=== PATIENT | female | born 1985 | race Caucasian/White ===

== ENCOUNTER 2016-03-30 13:06 | Inpatient (IN) | payer OTHER ==
[2016-03-30] VITALS (15 sets, daily range): BP systolic 122–150; BP diastolic 63–88
[~2016-03-30] VITALS: Ht 165.1 cm; Wt 87.1 kg
[2016-03-30 14:03] LABS: EOSINOPHIL (%) 0.3 % (0-5); EOSINOPHIL COUNT 0.1 K/uL (0-0.3); HEMATOCRIT 36.1 % (36.0-46.0); IMMATURE GRANULOCYTE (%) 0.3 % (0.0-0.7); LYMPHOCYTE COUNT 1.1 K/uL (1.0-2.8); MCH 31.2 PG (29.0-34.0); MCHC 34.3 G/DL (30.0-36.0); MCV 90.7 FL (83-99); MEAN PLAT.VOLUME 11.6 uM^3 (9.5-12.4); MONOCYTE (%) 7.1 % (3-12); NEUTROPHIL (%) 84.9 % (45-76); NEUTROPHIL COUNT 12.5 K/uL (1.8-6.4); PLATELET COUNT 203 K/uL (156-360); RBC DIS.WIDTH-CV 13.1 % (11.8-14.6); RBC DIS.WIDTH-SD 43.1 % (39-53); RED BLOOD COUNT 3.98 M/uL (3.80-5.20); WHITE BLOOD COUNT 14.7 K/uL (4.1-10.2)
[2016-03-30] MEDS ORDERED: IBUPROFEN800 MG PO (21:17)
[2016-03-31 00:08] VITALS: BP 124/102
[2016-03-31 00:09] VITALS: BP 133/65
[2016-03-31 07:35] VITALS: BP 124/68
[2016-03-31 15:36] VITALS: BP 119/69
[2016-03-31 22:55] VITALS: BP 125/64
[2016-04-01 07:50] VITALS: BP 104/71
== END 2016-04-01 13:40 | disposition home or self-care (01) | DRG 775 ==
LOC: LDRP-OP 13:06 → 2WEST 13:07 → LDRP-OP 05-11 10:26
PROVIDERS: Advanced Practice Midwife
DX: O26.03 Excessive weight gain in pregnancy, third trimester (principal); O70.0 First degree perineal laceration during delivery; Z37.0 Single live birth; Z3A.38 38 weeks gestation of pregnancy; O69.81X1 Labor and delivery complicated by cord around neck, without compression, fetus 1; Z68.31 Body mass index [BMI] 31.0-31.9, adult
CPT/HCPCS: 85025; J0595; J7120